=== PATIENT | female | born 1985 | race Caucasian/White ===

== ENCOUNTER 2016-10-06 18:24 | Emergency (ER) | payer OTHER ==
[~2016-10-06] VITALS: Ht 167.6 cm; Wt 79.5 kg
[~2016-10-06 18:24] MED LIST: NORCO 325 MG-51 TAB PO; PRENATAL
[2016-10-06 18:30] VITALS: BP 115/66; TEMP 98.6
[2016-10-06 20:13] VITALS: PULSE 71
== END 2016-10-06 20:16 | disposition home or self-care (01) ==
LOC: COL.ER 18:24
DX: O98.812 Other maternal infectious and parasitic diseases complicating pregnancy, second trimester (principal); Z20.3 Contact with and (suspected) exposure to rabies; Z23 Encounter for immunization; Z3A.18 18 weeks gestation of pregnancy

== ENCOUNTER → 2016-10-09 | Outpatient (CLI) | payer OTHER ==
[~2016-10-09] VITALS: Ht 167.6 cm; Wt 79.5 kg
[2016-10-09 14:14] VITALS: BP 143/72; PULSE 85; TEMP 98.4
== END ==
LOC: COL.ER 14:07
DX: Z23 Encounter for immunization (principal); Z02.89 Encounter for other administrative examinations

== ENCOUNTER 2016-10-20 08:00 | Outpatient (RCR) | payer OTHER | END 2017-01-18 | disposition still patient (30) | LOC: WSOH → EDSTATUS 11:38 | DX: Z23 Encounter for immunization (principal); Z20.3 Contact with and (suspected) exposure to rabies; Y99.0 Civilian activity done for income or pay ==

== ENCOUNTER 2016-10-23 11:34 | Outpatient (RCR) | payer OTHER | END 2017-01-07 | LOC: WSOH | DX: Z20.3 Contact with and (suspected) exposure to rabies (principal); Y92.214 College as the place of occurrence of the external cause ==

== ENCOUNTER → 2016-11-09 | Outpatient (REF) | LOC: WSOH 15:00 | DX: Z02.89 Encounter for other administrative examinations (principal) ==

== ENCOUNTER 2017-03-12 05:32 | Inpatient (IN) | payer OTHER ==
[~2017-03-12] VITALS: Ht 167.6 cm; Wt 95.0 kg
[2017-03-12] VITALS (18 sets, daily range): BP systolic 110–138; BP diastolic 54–80; PULSE 63–109; TEMP 97.6–98.4
[2017-03-12 06:28] LABS: BASO # 0.1 (0.0-0.2); BASO % 0.4 % (0.0-2.0); EOS # 0.4 (0.0-0.7); EOS % 3.4 % (0-4.0); GRAN # 8.2 (1.4-6.5); GRAN % 71.6 % (42.2-75.2); HEMATOCRIT 35.9 % (37.0-47.0); LYMPH % 17.6 % (20.0-51.0); MEAN CELL VOLUME 92 fl (80.0-100.0); MEAN CORPUSCULAR HEMOGLOBIN 31 pg (27.0-31.0); MEAN CORPUSCULAR HGB CONC 33 g/dl (33.0-37.0); MEAN PLATELET VOLUME 10.2 fl (7.4-10.4); MONO # 0.7 (0.1-0.6); MONO % 5.8 % (1.7-9.3); PLATELET COUNT 272 K/mm3 (130-400); RED BLOOD COUNT 3.91 M/mm3 (4.10-5.30); WHITE BLOOD COUNT 11.5 K/mm3 (4.8-10.8)
[2017-03-12] MEDS ORDERED: MOTRIN 800800 MG/TAB PO (07:15)
[2017-03-12] MEDS ORDERED: PERCOCET 325 MG1 TA2 PO (07:15)
[2017-03-13 06:57] LABS: HEMATOCRIT 35.2 % (37.0-47.0); HEMOGLOBIN 11.4 g/dl (12.5-16.0)
[2017-03-13 07:31] VITALS: BP 113/78; PULSE 85; TEMP 97.5
[2017-03-13 17:04] VITALS: BP 115/69; PULSE 68; TEMP 97.8
[2017-03-13 23:27] VITALS: BP 125/70; PULSE 70; TEMP 98.5
[2017-03-14 07:15] VITALS: BP 134/81; PULSE 73; TEMP 98
== END 2017-03-14 12:20 | disposition home or self-care (01) | DRG 766 ==
LOC: OB 05:32
PROVIDERS: Obstetrics & Gynecology
PROC: 10D00Z1 Extraction of Products of Conception, Low, Open Approach (ICD-10-PCS; principal; 2017-03-12)
PROC: 0UB70ZZ Excision of Bilateral Fallopian Tubes, Open Approach (ICD-10-PCS; 2017-03-12)
DX: O34.211 Maternal care for low transverse scar from previous cesarean delivery (principal); N85.8 Other specified noninflammatory disorders of uterus; Z3A.39 39 weeks gestation of pregnancy; Z37.0 Single live birth; Z40.03 Encounter for prophylactic removal of fallopian tube(s)
CPT/HCPCS: J0690; J1885; J2270; J2370; J2405; J2590; J7120

== ENCOUNTER 2019-09-21 10:30 | Emergency (ER) | payer OTHER ==
[~2019-09-21] VITALS: Ht 167.6 cm; Wt 75.0 kg
[~2019-09-21 10:30] MED LIST changes: +MOTRIN 800800 MG/TAB PO; +PERCOCET 325 MG1 TA2 PO
[2019-09-21 10:36] VITALS: TEMP 98.1
[2019-09-21] MEDS ORDERED: NORCO 325 MG-51 TAB PO (12:35)
[2019-09-21] MEDS ORDERED: CRUTCHES MC (12:39)
[2019-09-21 13:07] VITALS: BP 124/79; PULSE 59
== END 2019-09-21 13:07 | disposition home or self-care (01) ==
LOC: COL.ER 10:30
DX: S76.111A Strain of right quadriceps muscle, fascia and tendon, initial encounter (principal); X50.1XXA Overexertion from prolonged static or awkward postures, initial encounter; Y93.17 Activity, water skiing and wake boarding; Y92.828 Other wilderness area as the place of occurrence of the external cause
CPT/HCPCS: J1885

== ENCOUNTER 2024-02-24 13:39 | Emergency (ER) | payer OTHER ==
[~2024-02-24] VITALS: Ht 167.6 cm; Wt 77.3 kg
[~2024-02-24 13:39] MED LIST changes: +CRUTCHES MC
[2024-02-24 13:44] VITALS: TEMP 97.9
[2024-02-24] MEDS ORDERED: LR 1,000 ML IV ONE (14:00)
[2024-02-24] MEDS ORDERED: Ondansetron 4 MG/2 ML VIAL IV ONE ×2 (14:00→16:30)
[2024-02-24] MEDS ORDERED: Morphine 4 MG/ML VIAL IV ONE ×3 (14:00→18:45)
[2024-02-24 14:22] LABS: BASO # 0.1 K/mm3 (0.0-0.2); BASO % 0.6 % (0.0-2.0); EOS # 0.4 K/mm3 (0.0-0.7); EOS % 4.6 % (0.0-4.0); GRAN # 6.1 K/mm3 (1.4-6.5); GRAN % 68.9 % (42.2-75.2); HEMATOCRIT 41.4 % (37.0-47.0); LYMPH # 1.8 K/mm3 (1.2-3.4); LYMPH % 20.4 % (20.0-51.0); MEAN CELL VOLUME 95 fl (80.0-100.0); MEAN CORPUSCULAR HEMOGLOBIN 32 pg (27-31); MEAN CORPUSCULAR HGB CONC 34 g/dl (33.0-37.0); MEAN PLATELET VOLUME 9.4 fl (7.4-10.4); MONO # 0.4 K/mm3 (0.1-0.6); PLATELET COUNT 277 K/mm3 (130-400); RED BLOOD COUNT 4.38 M/mm3 (4.10-5.30); REDCELL DISTRIBUTION WIDTH-CV 12.3 % (11.5-14.5)
[2024-02-24 14:36] LABS: ALBUMIN 4.2 g/dL (3.5-5.0); BILIRUBIN,TOTAL 0.4 mg/dL (0.2-1.2); CALCIUM 9.7 mg/dL (8.4-10.2); INR 1.1 (0.8-3.0); PROTHROMBIN TIME 11.4 SECONDS (9.7-12.8); TOTAL PROTEIN 7.3 g/dl (6.2-8.1)
[2024-02-24] MEDS ORDERED: Iohexol 300 - 100 ML VIAL IV ONE (15:03)
[2024-02-24] MEDS ORDERED: NS 100 ML IV SCH (15:03)
[2024-02-24] MEDS ORDERED: Ketorolac 15 MG/ML VIAL IV ONE (16:30)
[2024-02-24 19:10] VITALS: BP 126/79; PULSE 65
== END 2024-02-24 19:10 | disposition short-term general hospital (02) ==
LOC: COL.ER 13:39
PROVIDERS: Emergency Medicine
DX: S22.081A Stable burst fracture of T11-T12 vertebra, initial encounter for closed fracture (principal); V80.010A Animal-rider injured by fall from or being thrown from horse in noncollision accident, initial encounter
CPT/HCPCS: J1885; J2270; J2405; J7120; Q9967